=== PATIENT | male | born 1945 | race Caucasian/White ===

== ENCOUNTER 2017-03-08 08:07 | Emergency (ER) | payer OTHER ==
[~2017-03-08] VITALS: Ht 182.9 cm; Wt 71.2 kg
[~2017-03-08 08:07] MED LIST: AMBIEN 5 MG TABL5 MG PO; CALCIUM MAGNES1 EACH PO; CIPROFLOXACIN500 M1 PO; COREG25 MG PO; DELATESTRY200 MG/1 M IM; FLAGYL500 MG PO; GUAIFENESIN WI120 ML PO; HYDROCHLOROTHIA25 M1 PO; HYDROCODONE-APA1 TA1 PO; PREDNISONE 10 M10 MG PO
[2017-03-08] MEDS ORDERED: PROPRANOLOL 8080 MG PO (08:17)
[2017-03-08 10:22] VITALS: BP 126/75
== END 2017-03-08 10:23 | disposition home or self-care (01) ==
LOC: ER 08:07
DX: S62.611A Displaced fracture of proximal phalanx of left index finger, initial encounter for closed fracture (principal); S62.615A Displaced fracture of proximal phalanx of left ring finger, initial encounter for closed fracture; I10 Essential (primary) hypertension; I48.91 Unspecified atrial fibrillation; Z98.890 Other specified postprocedural states; X58.XXXA Exposure to other specified factors, initial encounter; Y93.89 Activity, other specified; Y92.89 Other specified places as the place of occurrence of the external cause; Y99.0 Civilian activity done for income or pay

== ENCOUNTER → 2018-06-21 | Outpatient (CLI) | payer OTHER ==
[~2018-06-21] VITALS: Ht 180.3 cm; Wt 70.3 kg
[~2018-06-21] MED LIST changes: +AMBIEN 10 MG TA10 MG PO; -AMBIEN 5 MG TABL5 MG PO; +LISINOPRIL-HCT1 EAC1 PO; +NORCO 7.5-3251 EACH PO; +NORVASC5 MG PO; +PROPRANOLOL 8080 MG PO
--- NOTE | ~2018-06-21 | HPC ---
[facility] [address] [address] PAIN MANAGEMENT CONSULTATION Name: ANJANA BINGHAM Room #: REG [facility].#: [id number] Admission: 06/21/18 Attend Phys: Tomer Freeman DO Discharge: Date of : 45 Report #: [id number] THIS REPORT FOR: //name// CC: FAM unknown KRISTY Sutherland MD DATE OF SERVICE: 06/21/2018 REFERRING PHYSICIAN: Madhu Gomez MD CHIEF COMPLAINT: Left low back and buttock pain. HISTORY OF PRESENT ILLNESS: As you know, the patient is an extremely pleasant 72-year-old male who reports acute onset of low back pain, left-sided upper buttock pain that presented spontaneously 04/2018. The patient denies any injury or trauma to the area that may have led to symptom development. As you are aware, the patient has had 4 different lumbar spine surgeries to address variable issues starting at the age of 16. He was recently seen by Neurosurgery of [facility] and there were no specific concerns in imaging and subsequently referred to our clinic as they did not see a specific etiology of symptoms that would be amenable to surgery. The patient indicates that he has trouble with the seated position. He has to shift from the left buttock to the right to maintain a seated position. He states that walking distances is "okay." He states pain is exacerbated with rising from a forward flexed lumbar spine position. He has been referred to our service to discuss option for treatment to address low back, left-sided pain. The patient indicates today his pain is continuous, describes the pain as throbbing, places his current pain score today over 10, daily average is 7-8/10, the worst pain has been is 9-10/10. The patient states his pain is exacerbated with activities, improves with lying down, when he is elevated or walking. He has been referred and discussed the options for treatment. PAST MEDICAL HISTORY: 1. Hypertension. 2. Degenerative joint disease. 3. Osteoarthritis. 4. Insomnia. PAST SURGICAL HISTORY: 1. Four lumbar spine surgeries starting at the age of 16. 2. Bilateral shoulder surgery. 3. Implantation of a deep brain stimulator for essential tremors. [facility] [address] [place] [address] PAIN MANAGEMENT CONSULTATION Name: ANJANA BINGHAM Room #: REG [facility].#: [id number] Admission: 06/21/18 Attend Phys: Tomer Freeman DO Discharge: Date of : 45 Report #: [id number] SOCIAL HISTORY: The patient denies tobacco, alcohol, IV or illicit drug use. 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 He is not receiving workmen's compensation nor is he trying to obtain disability benefits. He is not in litigation in regards to pain. He is unaccompanied today. REVIEW OF SYSTEMS: Positive only for left low back pain, left buttock pain, difficulty with ambulation when pain is intense, difficulty with going about activities of daily living when pain is intense, tremors. All other review of systems is negative per 12-point review of systems other than those listed in history of present illness. Pain impact score 26/70 indicating [id number] interference of daily activities secondary to pain. ALLERGIES: No noted drug allergies. CURRENT MEDICATIONS: Lisinopril/hydrochlorothiazide 20/12.5 mg once a day, amlodipine 5 mg per day, hydrocodone 7.5/325 one tab every 6 hours p.r.n. for pain, zolpidem 10 mg p.o. at bedtime. IMAGING DATA: X-ray of the lumbar spine obtained on 06/02/2018 shows L1-L2 unremarkable. L2-L3, near complete loss of disk height, endplate sclerosis, osteophyte formation, intradiscal gas. L3-L4, near complete disk height loss, endplate sclerosis, osteophyte formation, intradiscal gas, facet arthropathy. L4-L5, near complete loss of disk height, endplate sclerosis, osteophyte formation, facet arthropathy. L5-L6, disk space narrowing and facet arthropathy. L6-S1, disk space narrowing and facet hypertrophy. PHYSICAL EXAMINATION: VITAL SIGNS: Blood pressure 121/82, pulse 85, respiratory rate 14 and unlabored. The patient is 98% on room air. Height 5 feet 11 inches tall, weight 155 pounds, BMI calculated 21.6. GENERAL: Well-developed, well-nourished, well-hydrated, 72-year-old male. He appears his stated age, placing current pain score 8-9/10. HEENT: Normocephalic, atraumatic. Pupils equal, round, reactive to light. Extraocular muscles are intact. Sclerae nonicteric without injection. NEUROLOGIC: Cranial nerves 2-12 grossly intact. Speech is fluent. The patient deemed an excellent historian. LUNGS: Clear, no wheeze, rhonchi or rales. CARDIOVASCULAR: Regular. No appreciable gallop or rub. ABDOMEN: Soft, nontender, nondistended, normoactive bowel sounds. EXTREMITIES: Show no clubbing, no cyanosis, no edema. MUSCULOSKELETAL: There is palpatory tenderness noted over the left lower back directly over what appears to be the upper SI joint. There is deep palpation of pain over the area. No changes in skin color, texture, concerning of any zoster. Lower extremity strength is symmetrical 5/5. He is intact to [facility] [address] [place] [address] PAIN MANAGEMENT CONSULTATION Name: ANJANA BINGHAM Room #: [facility].#: [id number] Admission: 06/21/18 Attend Phys: Tomer Freeman DO Discharge: Date of : 45 Report #: [id number] touch from L1 through S2 dermatomes. Seated straight leg raising negative. Supine straight leg raising is negative. Isidro's test is negative for intrinsic hip pathology, positive for SI joint dysfunction. Lumbar provocation testing is met with increasing pain with extension, rotation, and lateral flexion to the left, negative right. There is noted leg length discrepancy with right slightly longer than left. There is pelvic unleveling noted. ASSESSMENT: 1. Left sacroiliac joint dysfunction. 2. Lumbosacral spondylosis without radiculopathy. 3. Lumbar degeneration. 4. Chronic intractable pain. PLAN: 1. Based on today's physical exam, the history the patient has provided, the description the patient uses in regards to pain as well as the location of symptoms and the lack of any lumbar radicular distribution, the likely source of the patient's pain is the left SI joint. There is some contribution of pain related to the facet joints of the lower lumbar area in this patient's case, the L5-L6 and the L6-S1 on the left. The majority of the patient's symptoms do appear to be coming from an SI joint. His provocating factors would also indicate a sacroiliac joint dysfunction more than just facet arthropathy. We discussed with the patient treatment options for SI joint dysfunction today and the following was discussed with the patient. The patient and I discussed physical therapy, stretching exercises, core strengthening as a way to stabilize the pelvic area. We discussed medication management with addition of a consistent nonsteroidal anti-inflammatory and low dose opioid for pain control. We discussed the use of orthotics to adjust the leg length discrepancy noted on physical exam. This could be done quite easily, though this would take some time to address his ongoing pain issues as it will take time to change the mechanics of the lumbar and SI joint area. We also discussed SI joint injections as a rapid treatment option and finally surgical options with the fusion of the SI joint. After reviewing the risks and benefits of all the proposed treatment options, the patient chose to move forward with an SI joint injection. 2. The patient was advised third alliance party payer restrictions require the authorization be obtained before he can undergo an SI joint injection. We will begin the authorization process immediately. Once we have completed this authorization process, we will contact the patient in regards to undergoing the SI joint injection. It is indicated on the chart that this may be a 24-hour approval process. We will begin the process immediately and hopefully have the patient back tomorrow to undergo a left SI joint injection. 3. No medication changes made at today's visit. The patient was advised to continue current medical therapy as prior prescribed. 4. We will see the patient back in followup visit once we have achieved [address] [address] PAIN MANAGEMENT CONSULTATION Name: ANJANA BINGHAM Room #: REG [facility]#: [id number] Admission: 06/21/18 Attend Phys: Tomer Freeman DO Discharge: Date of : 45 Report #: [id number] authorization for him to undergo first in a series of left SI joint injections under fluoroscopic guidance. We wish to thank Dr. Gomez and his nurse practitioner, Tita Magdaleno for the referral of the patient to our clinic. We will keep you apprised of his response to treatment as we address his left SI joint dysfunction and facet arthropathy of the lumbar spine. Again, we wish to thank you for the opportunity to see the patient in consultation. By: [id number] Tomer Freeman DO /hannah
[2018-06-21 08:27] VITALS: BP 121/82
== END ==
LOC: PAIN 06:34
DX: M47.817 Spondylosis without myelopathy or radiculopathy, lumbosacral region (principal); M51.36 Other intervertebral disc degeneration, lumbar region; G89.4 Chronic pain syndrome; M53.3 Sacrococcygeal disorders, not elsewhere classified; Z79.899 Other long term (current) drug therapy

== ENCOUNTER → 2018-06-22 | Outpatient (CLI) | payer OTHER ==
[~2018-06-22] VITALS: Ht 180.3 cm; Wt 70.0 kg
--- NOTE | ~2018-06-22 | HPC ---
[facility] [address] [place] [address] PAIN MANAGEMENT CONSULTATION Name: ANJANA BINGHAM Room #: REG [facility] SisiStaceyMaria Luz.#: [id number] Admission: 06/22/18 Attend Phys: Tomer Freeman DO Discharge: Date of : 45 Report #: [id number] THIS REPORT FOR: //name// CC: FAM unknown Tomer WAGNER DATE OF SERVICE: 06/22/2018 REFERRING PHYSICIANS: Madhu Gomez M.D. and KRISTY Mark. CHIEF COMPLAINT: Left low back and upper buttock pain. HISTORY OF PRESENT ILLNESS: As you know, the patient is an extremely pleasant 72-year-old male who reports acute onset of low back pain, left upper buttock pain that presented spontaneously in April 2018. He denies any injury or trauma that may have led to symptom development. The patient has had 4 different lumbar spine surgeries, addressing various issues. He sought evaluation through Neurosurgery in regards to this new left low back and upper buttock pain. It was determined that no surgical option was needing to be addressed and the patient was then referred to our clinic to trial interventional treatments. He was seen in consultation yesterday, diagnosed with left SI joint dysfunction and planned today's appointment to undergo a left SI joint injection under fluoroscopic guidance. The patient needed to obtain authorization to undergo the procedure, which took 24 hours. He returns today in followup visit stating a pain level today of 8/10. ALLERGIES: No known drug allergies. CURRENT MEDICATIONS: Lisinopril/hydrochlorothiazide 20/12.5 mg once a day, amlodipine 5 mg per day, hydrocodone 7.5/325 one tab every 6 hours p.r.n. pain, zolpidem 10 mg p.o. at bedtime. SOCIAL HISTORY: The patient denies tobacco, alcohol or IV or illicit drug use. 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 He is not receiving workmen's compensation, unaccompanied today. IMAGING DATA: No new imaging available. PHYSICAL EXAMINATION: VITAL SIGNS: Blood pressure 120/75, pulse 90 and respiratory rate 16 and unlabored. The patient 99% on room air. Height 5 feet 11 inches tall, weight 154.4 pounds and BMI calculated 21.5. GENERAL: Well-developed, well-nourished, well-hydrated, thin, 72-year-old male appearing stated age, placing current pain score at 8/10. [address] [address] PAIN MANAGEMENT CONSULTATION Name: ANJANA BINGHAM Room #: REG [facility]#: [id number] Admission: 06/22/18 Attend Phys: Tomer Freeman DO Discharge: Date of : 45 Report #: [id number] HEENT: Normocephalic and atraumatic. Pupils equal, round and reactive to light. EXTREMITIES: Show no clubbing, no cyanosis and no edema. MUSCULOSKELETAL: Palpatory tenderness noted over the left lower back directly over the upper portion of the SI joint. Deep palpation of the area causes intensification of pain. Lower extremity strength remains symmetrical, 5/5. ASSESSMENT: 1. Left sacroiliac joint dysfunction. 2. Lumbosacral spondylosis without radiculopathy. 3. Lumbar degeneration. 4. Chronic intractable pain. PLAN: 1. The patient returns today in followup visit having received authorization to undergo left SI joint injection under fluoroscopic guidance. As you are aware, the patient has had multiple surgeries in the lumbar spine, though his symptoms currently do not appear to be related to the lumbar area. The pain he is experiencing is lateral and inferior to the L5-S1 level corresponding to the SI joint. The patient and I today planned for the patient to have a SI joint injection in hopes of improving pain. He has returned with authorization to undergo the procedure. He has been advised of the risks and the benefits of this procedure. These risks include but are not necessarily limited to bleeding, bruising, infection, worsening pain, no relief of pain, also risk of temporary or permanent muscle weakness, temporary or permanent nerve damage, possible paralysis and . The patient states understood and wished to proceed. 2. No medication changes made at today's visit. The patient will continue current medical therapy as previously prescribed. 3. The patient will return to our clinic in approximately 3 weeks and at that time, discuss efficacy of today's injection. PROCEDURE NOTE DESCRIPTION OF PROCEDURE: Left SI joint injection under fluoroscopic guidance. This is the first procedure of the first series that the patient is undergoing. After obtaining written consent, the patient was taken back to the fluoroscopy suite and placed in a prone position with a pillow under the pelvis to decrease the lumbar lordosis. The skin of the gluteal-sacral area overlying the left sacroiliac joint was prepped and draped in an aseptic fashion. A medial to lateral oblique projection allowed separation of the anterior and posterior branches of the joint space. The skin and subcutaneous tissue [address] [address] PAIN MANAGEMENT CONSULTATION Name: ANJANA BINGHAM Room #: REG [facility]#: [id number] Admission: 06/22/18 Attend Phys: Tomer Freeman DO Discharge: Date of : 45 Report #: [id number] overlying the target site of injection was anesthetized using 3 mL of 1% lidocaine. A 22-gauge 3-1/2 inch needle with a bent tip was directed into the inferior aspect of the sacroiliac joint using a posterior approach. A at the needle hub was noted once the dorsal sacroiliac and interosseous ligaments were engaged. After negative aspiration for heme, a total of 0.6 mL of Omnipaque was injected, outlining the coin-shaped inferior recess of the joint. Provocation responses consisting of intense buttock pain were negative. After negative aspiration for heme, 3 mL of a solution containing 1 mL 40 mg per mL, 40 mg total triamcinolone and 2 mL bupivacaine 0.5% was slowly injected. The needle was then retracted approximately prison and the needle track was flushed with 1 mL of 1% lidocaine. Needle was then removed. A sterile bandage was placed over the injection site. There were no new sensory deficits present in the lower extremities. The heart rate, pulse oximetry and blood pressure were continuously monitored after the procedure. There were no apparent complications. The patient tolerated the procedure well and was carefully escorted to the recovery room in stable condition. The VAS was 8 before the procedure and zero ten minutes after the procedure. After meeting discharge criteria, the patient was discharged home. By: [id number] Tomer Freeman DO /nt
[2018-06-22 08:42] VITALS: BP 128/75
== END ==
LOC: PAIN 06:59
DX: M53.3 Sacrococcygeal disorders, not elsewhere classified (principal); M47.817 Spondylosis without myelopathy or radiculopathy, lumbosacral region; M51.36 Other intervertebral disc degeneration, lumbar region; G89.29 Other chronic pain; Z79.899 Other long term (current) drug therapy; Z98.890 Other specified postprocedural states

== ENCOUNTER → 2018-07-06 | Outpatient (CLI) | payer OTHER ==
[~2018-07-06] VITALS: Ht 180.3 cm; Wt 70.8 kg
--- NOTE | ~2018-07-06 | HPC ---
[facility] [address] [place] [address] PAIN MANAGEMENT CONSULTATION Name: ANJANA BINGHAM [facility]#: [id number] Admission: 07/06/18 Attend Phys: Tomer Freeman DO Discharge: Date of : 45 Report #: [id number] THIS REPORT FOR: //name// CC: ELIJAH Gomez MD Physician staff Tita Magdaleno NP CHIEF COMPLAINT: Left low back and upper buttock pain. HISTORY OF PRESENT ILLNESS: As you know, the patient is extremely pleasant 72-year-old male who returns today in followup visit to undergo second in series of SI joint injections on the left side. Initial SI joint injection provided significant pain improvement, but unfortunately, his pain did return. He sought evaluation with Neurosurgery who advised trial once further SI joint injection to determine if we can provide long-term benefit. The fact that the patient noted excellent benefit initially with the SI joint injection indicates the SI joint is the source of the patient's pain whether or not we can maintain efficacy is the question to be answered today. He returns today per the request of Neurosurgery to undergo a left SI joint injection to determine if prolonged efficacy can be obtained. The patient is placing pain score 8/10, states activity and bending exacerbate symptoms, lying down, tends to improve pain as has the previous SI joint injection. ALLERGIES: No known drug allergies. CURRENT MEDICATIONS: Lisinopril, hydrochlorothiazide, amlodipine, hydrocodone, zolpidem. SOCIAL HISTORY: The patient denies tobacco, alcohol, IV or illicit drug use. 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 IMAGING: No new imaging available. PHYSICAL EXAMINATION: VITAL SIGNS: Blood pressure 120/79, pulse 88, respiratory rate 16 and unlabored. The patient is 98% on room air. Height 5 feet 11 inches tall, weight 156 pounds, BMI calculated 21.8. GENERAL: Well-developed, well-nourished, well-hydrated, thin, 72-year-old male appearing stated age, placing current pain score at 8/10. HEENT: Normocephalic, atraumatic. Pupils equal, round, reactive to light. EXTREMITIES: Show no clubbing, no cyanosis, no edema. MUSCULOSKELETAL: Palpatory tenderness is again noted over the left lower back directly over the superior portion of the joint. Deep palpation of the area causes intensification of pain. Manipulation of the SI joint causes intensification of pain with Isidro's test. Lower extremity strength remains [facility] [address] [place] [address] PAIN MANAGEMENT CONSULTATION Name: ANJANA BINGHAM Room #: REG [facility]#: [id number] Admission: 07/06/18 Attend Phys: Tomer Freeman DO Discharge: Date of : 45 Report #: [id number] 12/18. ASSESSMENT: 1. Left sacroiliac joint dysfunction. 2. Lumbosacral spondylosis without radiculopathy. 3. Lumbar degeneration. 4. Chronic intractable pain. PLAN: 1. The patient returns today in followup visit having received excellent benefit with the SI joint injection initially, but unfortunately, he began to experience slow and progressive return of symptoms. He is now placing pain score back at 8/10, his typical base level. The patient sought evaluation through Neurosurgery who advised to trial a second in the series of SI joint injections to determine if his symptoms would improve more effectively and for a longer period of time. Given the fact the patient's good improvement in symptoms with the SI joint injection at our last visit, I am hopeful he will see similar improvement today. This would indicate that the SI joint is the source of the patient's symptoms whether or not SI joint injections will provide good and prolonged benefit, we will determine today. If this is not the case, a fusion of the SI joint may be necessary. We discussed this with Neurosurgery and we have discussed this with the patient today. 2. No medication changes made at today's visit. The patient will continue current medical therapy as previously prescribed. 3. We will see the patient back in followup visit on an as needed basis. There is a possibility the patient will need a diagnostic SI joint injection as part of the criteria to move forward with SI joint fusion. We will be available to see him back if necessary to undergo this procedure. If the patient notes good benefit with a SI joint injection today and it is prolonged in its improvement, we would be willing to provide these on an as needed basis for a typical SI joint procedures. By: [id number] Tomer Freeman DO /nt
--- NOTE | ~2018-07-06 | HPC ---
[facility] [place] [address] PAIN MANAGEMENT CONSULTATION Name: ANJANA BINGHAM Room #: REG [facility].#: [id number] Admission: 07/06/18 Attend Phys: Tomer Freeman DO Discharge: Date of : 45 Report #: [id number] THIS REPORT FOR: //name// CC: ELIJAH Gomez MD Physician staff Tita Magdaleno NP DESCRIPTION OF PROCEDURE: Left SI joint injection under fluoroscopic guidance. This is the second procedure of the first series that the patient is undergoing. After obtaining written consent, the patient was taken back to the fluoroscopy suite and placed in a prone position with a pillow under the pelvis to decrease the lumbar lordosis. The skin of the gluteal-sacral area overlying the left sacroiliac joint was prepped and draped in an aseptic fashion. A medial to lateral oblique projection allowed separation of the anterior and posterior branches of the joint space. The skin and subcutaneous tissue overlying the target site of injection was anesthetized using 3 mL of 1% lidocaine. A 22-gauge 3-1/2-inch needle with a bent tip was directed into the inferior aspect of the sacroiliac joint using a posterior approach. A giving way at the needle hub was noted once the dorsal sacroiliac and interosseous ligaments were engaged. After negative aspiration for heme, a total of 0.5 mL of Omnipaque was injected, outlining the coin-shaped inferior recess of the joint. Provocation responses consisting of intense buttock pain were negative. After negative aspiration for heme, 3 mL of a solution containing 1 mL 80 mg/mL 80 mg total Depo-Medrol and 2 mL bupivacaine 0.5% was slowly injected. The needle was then retracted approximately mcc and the needle track was flushed with 1 mL of 1% lidocaine. Needle was then removed. A sterile bandage was placed over the injection site. There were no new sensory deficits present in the lower extremities. The heart rate, pulse oximetry and blood pressure were continuously monitored after the procedure. There were no apparent complications. The patient tolerated the procedure well and was carefully escorted to the recovery room in stable condition. The VAS was 8/10 before the procedure and 0/10 ten minutes after the procedure. After meeting discharge criteria, the patient was discharged home. By: [id number] Tomer Freeman DO /nt
[2018-07-06 09:52] VITALS: BP 120/79
== END | disposition home or self-care (01) ==
LOC: PAIN 06:35
DX: M53.3 Sacrococcygeal disorders, not elsewhere classified (principal); M47.817 Spondylosis without myelopathy or radiculopathy, lumbosacral region; M51.36 Other intervertebral disc degeneration, lumbar region; G89.29 Other chronic pain; Z79.899 Other long term (current) drug therapy

== ENCOUNTER → 2019-08-22 | Outpatient (CLI) | payer OTHER ==
[~2019-08-22] VITALS: Ht 180.3 cm; Wt 69.5 kg
[2019-08-22 11:52] VITALS: BP 137/83
--- NOTE | 2019-08-22 11:58 | NUR ---
Pain Clinic Assessment: 1. History of Osteoarthritis: BACK History of Rheumatoid Arthritis: NO 2. Height: 5 ft. 11 in. 180.3 cm. Weight: 153.2 lb. oz. 69.491 kg. Patient's BMI: 21.4 3. Vital Signs: BP: 137/83 Pulse: 76 Resp: 16 Temp: 02 Sat: 100 ECG Mon: 4. Pain Intensity: 7-8 5. Fall Risk: Dizziness: N Needs help standing or walking: N Fallen in the last 3 months: N Fall risk comments: 6. Patient on Blood Thinner: None 7. History of Hypertension: Y 8. Opioid Therapy greater than 6 weeks: N Opiate Contract Signed: 9. Risk Assessment Tool Provided: 0-low 10. Functional Assessment Tool: 11. Recreational Drug Use: Never Drug Type: Tobacco Use: Never Smoker Tobacco Type: Amount or Packs/day: How Many Years: Alcohol Use: No Frequency: Quant:
--- NOTE | 2019-08-23 12:54 | HPC ---
[facility] [place] [address] PAIN MANAGEMENT CONSULTATION Name: ANJANA BINGHAM [id number] Admission: 08/22/19 Attend Phys: Tomer Freeman DO Discharge: Date of : 45 Report #: [id number] THIS REPORT FOR: //name// CC: ELIJAH Gomez MD Physician staff Tita Magdaleno NP DATE OF SERVICE: 08/22/2019 REFERRING PHYSICIAN: Dr. Madhu Gomez PRIMARY CARE PHYSICIAN: Dr. Elijah Sheikh CHIEF COMPLAINT: Low back pain; bilateral lower extremity pain, left greater than right. HISTORY OF PRESENT ILLNESS: As you know, the patient is a very pleasant 73-year-old male who returns today in followup visit with bilateral lower extremity pain, left greater than right. As you are aware, the patient underwent sacroiliac joint injections with good efficacy in the past, but unfortunately, he has had a new onset of symptoms that he describes as burning, numbness and tingling. When describing symptoms, he indicates pain that radiates all the way down the leg on the left, which is different from the previous evaluation with the SI joint pain. He returns today to discuss potential treatment options. He does have a history of longstanding radicular symptoms that may have represented. He denies injury or trauma. ALLERGIES: No known drug allergies. CURRENT MEDICATIONS: Lisinopril/hydrochlorothiazide, amlodipine, hydrocodone, and zolpidem. IMAGING: There is no new imaging available. PHYSICAL EXAMINATION: VITAL SIGNS: Blood pressure 137/83, pulse 76, respiratory rate 16 and unlabored. The patient is 100% on room air. Height 5 feet 11 inches tall, weight 153.2 pounds, BMI calculated 21.4. GENERAL: Well-developed, well-nourished, well-hydrated 73-year-old male appearing stated age, pain is rated at 7-8/10. HEENT: Normocephalic, atraumatic. Pupils equal, round, reactive to light. EXTREMITIES: Show no clubbing, no cyanosis, and no edema. MUSCULOSKELETAL: Lower extremity strength appears symmetrical 5/5. Muscle bulk [facility] [address] [place] [address] PAIN MANAGEMENT CONSULTATION Name: ANJANA BINGHAM Room #: [facility].#: [id number] Admission: 08/22/19 Attend Phys: Tomer Freeman DO Discharge: Date of : 45 Report #: [id number] and tone equal and symmetrical in comparing left lower extremity to right. Seated straight leg raising negative. Supine straight leg raising positive on the left. Isidro's test is negative. There is palpatory tenderness over the bilateral SI joints. ASSESSMENT: 1. Lumbar radiculopathy. 2. Chronic lumbar radiculopathy. 3. Lumbosacral spondylosis with radiculopathy. 4. Bilateral sacroiliac joint pain, left greater than right. 5. Chronic intractable pain. PLAN: 1. The patient returns today in followup visit reporting low back pain radiating all the way down the leg on the left and intermittently on the right. This appears to be lumbar radiculopathy. It is different distribution and different pain descriptors than he was experiencing with his left SI joint symptoms. He continues to experience left SI joint dysfunction, but the symptoms he is experiencing today appear to be more radicular in origin. We discussed options for treatment. He chose to undergo a lumbar epidural injection. The patient was advised risks and benefits of a lumbar epidural injection. These risks include but are not necessarily limited to bleeding, bruising, infection, worsening pain, no relief of pain, also risk of temporary or permanent muscle weakness, temporary or permanent nerve damage, possible paralysis and . The patient states understood and wished to proceed. 2. No medication changes made at today's visit. The patient will continue current medical therapy as prior prescribed. 3. We will see the patient back in followup visit on an as needed basis to treat SI joint pain or possible recurrent lumbar radiculopathy. PROCEDURE NOTE: DESCRIPTION OF PROCEDURE: L5-S1 left paramedian epidural steroid injection under fluoroscopic guidance. After obtaining written consent, the patient was taken back to fluoroscopy suite, placed in prone position with pillow under abdomen to decrease lumbar lordosis. Skin overlying lumbosacral area then prepped and draped in aseptic fashion. The L5-S1 vertebral interspace identified by AP fluoroscopy. Skin and subcutaneous tissue overlying target site of injection anesthetized with 3 mL of 1% lidocaine. A 20-gauge 3-1/2 inch Tuohy needle advanced under fluoroscopic guidance towards the epidural space using a left parasagittal approach. Epidural space identified using loss of resistance to air technique. After negative aspiration [address] [address] PAIN MANAGEMENT CONSULTATION Name: ANJANA BINGHAM Room #: REG [facility] [place]#: [id number] Admission: 08/22/19 Attend Phys: Tomer Freeman DO Discharge: Date of : 45 Report #: [id number] for heme or cerebrospinal fluid, 0.5 mL of Omnipaque injected demonstrating an excellent epidurogram. After negative aspiration for heme or cerebrospinal fluid, 5 mL of a solution containing 2 mL 40 mg per mL, 80 mg total triamcinolone along with 3 mL of lidocaine 1% injected slowly. Needle retracted group home, flushed with 1 mL of 1% lidocaine and then removed. Sterile bandage placed over injection site. No new motor deficits present in the lower extremities following procedure. The patient tolerated procedure well, carefully escorted to recovery room in stable condition. No apparent complications. After meeting discharge criteria, the patient discharged home. <ELECTRONICALLY SIGNED> By: Tomer Freeman DO 08/23/19 1254 [id number] Tomer Freeman DO /nt
== END | disposition home or self-care (01) ==
LOC: PAIN 07:00
DX: M47.26 Other spondylosis with radiculopathy, lumbar region (principal); M53.3 Sacrococcygeal disorders, not elsewhere classified; G89.29 Other chronic pain; Z79.899 Other long term (current) drug therapy

== ENCOUNTER → 2019-09-05 | Outpatient (CLI) | payer OTHER ==
[~2019-09-05] VITALS: Ht 180.3 cm; Wt 69.4 kg
[2019-09-05 09:04] VITALS: BP 150/79
--- NOTE | 2019-09-05 09:16 | NUR ---
Pain Clinic Assessment: 1. History of Osteoarthritis: BACK History of Rheumatoid Arthritis: NO 2. Height: 5 ft. 11 in. 180.3 cm. Weight: 153.0 lb. oz. 69.400 kg. Patient's BMI: 21.3 3. Vital Signs: BP: 150/79 Pulse: 75 Resp: 14 Temp: 02 Sat: 98 ECG Mon: 4. Pain Intensity: 8 5. Fall Risk: Dizziness: N Needs help standing or walking: N Fallen in the last 3 months: N Fall risk comments: 6. Patient on Blood Thinner: None 7. History of Hypertension: Y 8. Opioid Therapy greater than 6 weeks: N Opiate Contract Signed: 9. Risk Assessment Tool Provided: 0-low 10. Functional Assessment Tool: 11. Recreational Drug Use: Never Drug Type: Tobacco Use: Never Smoker Tobacco Type: Amount or Packs/day: How Many Years: Alcohol Use: No Frequency: Quant:
--- NOTE | 2019-09-06 11:48 | HPC ---
[facility] [place] [address] PAIN MANAGEMENT CONSULTATION Name: ANJANA BINGHAM [facility] [id number] Admission: 09/05/19 Attend Phys: Tomer Freeman DO Discharge: Date of : 45 Report #: [id number] THIS REPORT FOR: //name// CC: ELIJAH Gomez MD Physician staff Tita Magdaleno NP DATE OF SERVICE: 09/05/2019 CHIEF COMPLAINT: Low back pain, bilateral lower extremity pain, left greater than right. HISTORY OF PRESENT ILLNESS: As you know, the patient is a very pleasant 73-year-old male returning in followup visit noticing an improvement in his lumbar radicular symptoms of greater than 90% improvement with the epidural injection. Unfortunately, his pain has begun to return. He now places pain score at 8/10. He recently saw his neurosurgeon, Dr. Madhu Gomez, who advised the patient to trial next in the series of epidural injections. He describes the pain is involving low back, bilateral buttock and mainly left leg. He states his pain is constant and aching in sensation. It improves with medications, lying down, standing, walking and epidural injections. He returns today in followup visit to undergo next in the series of epidural injection under fluoroscopic guidance to address recurrent lumbar radicular symptoms. ALLERGIES: No known drug allergies. CURRENT MEDICATIONS: Lisinopril/hydrochlorothiazide, amlodipine, hydrocodone and zolpidem. IMAGING: No new imaging available. PQRS: The patient has known arthritic change of the lumbar spine, bilateral hips. No rheumatoid arthritis, placing pain intensity 8/10. He is not a fall risk, has not had a fall in last 3 months. He is not on blood thinners, but is treated for hypertension. He is not on chronic opioids, but does have a low opiate addiction potential based on our assessment tool. Pain impact 26/70 indicating moderate interference of daily activity secondary to pain. PHYSICAL EXAMINATION: VITAL SIGNS: Blood pressure 150/79, pulse 75, respiratory rate 14 and unlabored. The patient is 98% on room air. Height 5 feet 11 inches tall, weight 153 pounds, BMI calculated 21.3. GENERAL: Well-developed, well-nourished, well-hydrated, thin, 73[place] [address] PAIN MANAGEMENT CONSULTATION Name: OTILIAANJANA GAVI Room #: REG [facility] HeardLavon#: [id number] Admission: 09/05/19 Attend Phys: Tomer Freeman DO Discharge: Date of : 45 Report #: [id number] appearing stated age, pain is rated today at 8/10. HEENT: Normocephalic, atraumatic. Pupils equal, round and reactive to light. Speech fluent. EXTREMITIES: Show no clubbing, no cyanosis, and no edema. MUSCULOSKELETAL: Lower extremity strength is symmetrical 5/5. Muscle bulk and tone is symmetrical comparing left lower extremity to right. Seated straight leg raising negative. Supine straight leg raising positive on the left. Isidro's test negative. Gait mildly antalgic favoring right lower extremity over left. Ankle clonus negative. Babinski is negative. ASSESSMENT: 1. Symptomatic lumbar radiculopathy. 2. Lumbosacral spondylosis with radiculopathy. 3. Bilateral sacroiliac joint pain. 4. Chronic intractable pain. PLAN: 1. The patient returns today in followup visit having noted 90% improvement in overall pain with the epidural injection provided at last visit. Unfortunately, he has had a slow and progressive return of symptoms. He returns today in followup visit requesting to undergo next in the series of epidural injections per the request of his neurosurgeon who he recently saw in consultation. The patient and I discussed the efficacy of the epidural injection. We do agree repeating epidural injection would be recommended. 2. The patient was advised that due to third [employer] party payer restrictions, authorization will have to be obtained before the patient could undergo epidural injection. We will begin this authorization process immediately, have the patient return to undergo epidural injection as quickly as possible. We will attempt to get that authorization today for a possible epidural injection tomorrow, 09/06/2019. We will keep the patient apprised of our progress. 3. No medication changes made at today's visit. The patient will continue current medical therapy as prior prescribed. 4. We will see the patient back in followup visit once we have authorization for the patient to undergo a lumbar epidural injection under fluoroscopic guidance. <ELECTRONICALLY SIGNED> By: Tomer Freeman DO 09/06/19 1148 [id number] 1350 Tomer Freeman DO /nt
== END ==
LOC: PAIN 06:47
DX: M47.27 Other spondylosis with radiculopathy, lumbosacral region (principal); G89.4 Chronic pain syndrome; Z79.899 Other long term (current) drug therapy; Z79.891 Long term (current) use of opiate analgesic

== ENCOUNTER → 2019-09-06 | Outpatient (CLI) | payer OTHER ==
[~2019-09-06] VITALS: Ht 180.3 cm; Wt 69.4 kg
--- NOTE | ~2019-09-06 | HPC ---
[facility] [place] [address] PAIN MANAGEMENT CONSULTATION Name: ANJANA BINGHAM Room #: REG [facility].#: [id number] Admission: 09/06/19 Attend Phys: oTmer Freeman DO Discharge: Date of : 45 Report #: [id number] THIS REPORT FOR: //name// CC: ELIJAH Gomez MD Physician staff DATE OF SERVICE: 09/06/2019 CHIEF COMPLAINT: Low back pain, bilateral lower extremity pain, left greater than right. HISTORY OF PRESENT ILLNESS: As you know, the patient is a very pleasant 73-year-old male returning in followup visit having received preauthorization to undergo a lumbar epidural injection under fluoroscopic guidance. He returns today reporting pain level of 8/10. He denies any changes in medical history since our visit of yesterday. ALLERGIES: No known drug allergies. CURRENT MEDICATIONS: Lisinopril, hydrochlorothiazide, amlodipine, hydrocodone, and zolpidem. IMAGING: There is no new imaging available. PQRS: The patient has known arthritic changes of the lumbar spine, bilateral hips and knees. No rheumatoid arthritis. Placing pain intensity at 8/10, not a fall risk, has not had a fall in last 3 months. Not on blood thinners, but is treated for hypertension. He is not on chronic opioids, has a low opioid addiction potential. Pain impact score 26/70 indicating mild interference of daily activities secondary to pain. PHYSICAL EXAMINATION: VITAL SIGNS: Blood pressure 128/82, pulse 78, respiratory rate 16 and unlabored. The patient is 100% on room air. Height 5 feet 11 inches tall, weight 153 pounds, BMI calculated 21.3. GENERAL: Well-developed, well-nourished, well-hydrated 73-year-old male appearing stated age, pain is rated today at 8/10. HEENT: Normocephalic, atraumatic. Pupils are equal, round, reactive. Speech fluent. EXTREMITIES: Show no clubbing, no cyanosis, and no edema. MUSCULOSKELETAL: Lower extremity strength appears symmetrical 5/5. Muscle bulk and tone equal and symmetrical in comparing the lower extremities. Seated straight leg raising negative. Supine straight leg raising positive on the [address] [address] PAIN MANAGEMENT CONSULTATION Name: ANJANA BINGHAM Room #: REG [facility] [place]#: [id number] Admission: 09/06/19 Attend Phys: Tomer Freeman DO Discharge: Date of : 45 Report #: [id number] left. ASSESSMENT: 1. Symptomatic lumbar radiculopathy. 2. Lumbosacral spondylosis with radiculopathy. 3. Chronic intractable pain. PLAN: 1. The patient returns today in followup visit to undergo next in the series of lumbar epidural injections under fluoroscopic guidance. We have received authorization for the patient to undergo the procedure today. He has been advised of the risks and the benefits of this procedure. These risks include but are not necessarily limited to bleeding, bruising, infection, worsening pain, no relief of pain, also risk of temporary or permanent muscle weakness, temporary or permanent nerve damage, possible paralysis, post-dural puncture headache and . The patient states understood and wished to proceed. 2. No medication changes made at today's visit. The patient will continue current medical therapy as prior prescribed. 3. We will see the patient back in followup visit on an as needed basis for possible next in the series of lumbar epidural injections. PROCEDURE NOTE DESCRIPTION OF PROCEDURE: L5-S1 left paramedian epidural steroid injection under fluoroscopic guidance. After obtaining written consent, the patient was taken back to fluoroscopy suite, placed in prone position with pillow under abdomen to decrease lumbar lordosis. Skin overlying lumbosacral area then prepped and draped in aseptic fashion. The L5-S1 vertebral interspace was identified by AP fluoroscopy. Skin and subcutaneous tissue overlying target site of injection was anesthetized with 3 mL of 1% lidocaine. A 20-gauge 3.5 inch Tuohy needle advanced under fluoroscopic guidance towards the epidural space using a left paramedian approach. Epidural space identified using loss of resistance to air technique. After negative aspiration for heme or cerebrospinal fluid, 1 mL of Omnipaque injected. Lumbar epidurogram confirmed using both AP and lateral fluoroscopy. After negative aspiration for heme or cerebrospinal fluid, 5 mL of a solution containing 2 mL 40 mg per mL, 80 mg total triamcinolone along with 3 mL of lidocaine 1% injected slowly. Needle retracted long-term, flushed with 1 mL of 1% lidocaine and then removed. Sterile bandage placed over injection site. There were no new motor deficits present in the lower extremities following procedure. The patient tolerated procedure well, carefully escorted to recovery room in [facility] [address] [place] [address] PAIN MANAGEMENT CONSULTATION Name: ANJANA BINGHAM Room #: [facility] [place]#: [id number] Admission: 09/06/19 Attend Phys: Tomer Freeman DO Discharge: Date of : 45 Report #: [id number] stable condition. No apparent complications. After meeting discharge criteria, the patient discharged home. By: [id number] Tomer Freeman DO /nt
[2019-09-06 13:13] VITALS: BP 128/82
--- NOTE | 2019-09-06 13:29 | NUR ---
Pain Clinic Assessment: 1. History of Osteoarthritis: BACK History of Rheumatoid Arthritis: NO 2. Height: 5 ft. 11 in. 180.3 cm. Weight: 153.0 lb. oz. 69.400 kg. Patient's BMI: 21.3 3. Vital Signs: BP: 128/82 Pulse: 78 Resp: 16 Temp: 02 Sat: 100 ECG Mon: 4. Pain Intensity: 8 5. Fall Risk: Dizziness: N Needs help standing or walking: N Fallen in the last 3 months: N Fall risk comments: 6. Patient on Blood Thinner: None 7. History of Hypertension: Y 8. Opioid Therapy greater than 6 weeks: N Opiate Contract Signed: 9. Risk Assessment Tool Provided: 0-low 10. Functional Assessment Tool: 11. Recreational Drug Use: Never Drug Type: Tobacco Use: Never Smoker Tobacco Type: Amount or Packs/day: How Many Years: Alcohol Use: No Frequency: Quant:
== END | disposition home or self-care (01) ==
LOC: PAIN 07:00
DX: M47.27 Other spondylosis with radiculopathy, lumbosacral region (principal); G89.29 Other chronic pain; M19.90 Unspecified osteoarthritis, unspecified site; I10 Essential (primary) hypertension; Z98.890 Other specified postprocedural states; Z79.899 Other long term (current) drug therapy

== ENCOUNTER → 2019-10-24 | Outpatient (CLI) | payer OTHER ==
[~2019-10-24] VITALS: Ht 180.3 cm; Wt 68.0 kg
--- NOTE | ~2019-10-24 | HPC ---
[facility] [place] [address] PAIN MANAGEMENT CONSULTATION Name: ANJANA BINGHAM Room #: [facility] [id number] Admission: 10/24/19 Attend Phys: Tomer Freeman DO Discharge: Date of : 45 Report #: [id number] THIS REPORT FOR: cc: ELIJAH MEDEROS MD Physician not on staff Tomer Freeman DO ~ CC: ELIJAH Gomez MD Physician staff DATE OF SERVICE: 10/24/2019 REFERRING PHYSICIAN: Madhu Gomez MD CHIEF COMPLAINT: Left buttock pain and posterolateral thigh pain. HISTORY OF PRESENT ILLNESS: As you know, the patient is a very pleasant 73-year-old male who returns today in followup visit with continued left buttock and posterolateral thigh pain. The patient is able to localize pain directly over the sciatic notch. There is no bursa involvement, it is not exacerbated with movement. The pain is not over any bony structure consistent with bursitis. He was advised by Neurosurgery and no surgical options are necessary at this time. They believed his symptoms may be related to a bursitis, though his distribution symptoms is not consistent with bursitic type pain. He has been referred back to our clinic to discuss options for treatment. He is placing pain at anywhere from 4-5/10, 7/10 when its worst and he describes the pain as burning, numbness and tingling. ALLERGIES: No known drug allergies. CURRENT MEDICATIONS: Lisinopril/hydrochlorothiazide, amlodipine, hydrocodone, and zolpidem. IMAGING: There is no new imaging available. PQRS: The patient has known arthritic changes of the lumbar spine, bilateral hips and knees. No rheumatoid arthritis. He is placing pain intensity today up to 7/10. He is not at fall risk, has not had a fall in last 3 months. He is not on blood thinners, but is treated for hypertension. He is on chronic opioids, has a low opiate addiction potential. Pain impact score 26/70, moderate interference of daily activities secondary to pain. PHYSICAL EXAMINATION: VITAL SIGNS: Blood pressure 122/73, pulse 82, respiratory rate 16 and unlabored, the patient is 99% on room air. Height 5 feet 11 inches tall, weight [facility] [address] [place] [address] PAIN MANAGEMENT CONSULTATION Name: ANJANA BINGHAM Room #: REG [facility].#: [id number] Admission: 10/24/19 Attend Phys: Tomer Freeman DO Discharge: Date of : 45 Report #: [id number] 150 pounds, BMI calculated 20.9. GENERAL: Well-developed, well-nourished, well-hydrated, thin, 73-year-old male appearing stated age, pain is rated around 7/10. HEENT: Normocephalic and atraumatic. Pupils are equal, round, and reactive to light. Extraocular muscles are intact. EXTREMITIES: Show no clubbing, no cyanosis, and no edema. MUSCULOSKELETAL: The patient has some palpatory tenderness over the sciatic notch on the left, negative on the right. There is no tenderness over the SI joint, nor is there tenderness over the left ischial bursa or tenderness to palpation over the greater trochanter on the left. Gait appears mildly antalgic due to pain generated in the buttock and posterolateral thigh. Seated straight leg raising negative. Supine straight leg raising positive on the left. Isidro's test negative. Modified Gaenslen's positive for some axial low back pain. ASSESSMENT: 1. Chronic lumbar radiculopathy. 2. Lumbosacral spondylosis with radiculopathy. 3. Failed lumbar spine surgery. 4. Chronic intractable pain. PLAN: 1. The patient returns today in followup visit with ongoing left buttock and posterolateral thigh pain. He was advised that his symptoms may correlate to a bursitis, though physical exam today would indicate no bursitic type of pain. He has no pain over the ischium on the left, nor the bursa overlying the ischium nor is there pain of the greater trochanter on the left or the bursa overlying the greater trochanter. Isidro's test is negative, which rules out any specific intrinsic hip pathology, this leaves us with a sciatic notch palpatory tenderness. The patient is a very definitive when we reached the spot of discomfort and this is correlated the sciatic notch. Interventional treatments to address this do not exist. Treatments would have to involve the lumbar spine. If interventional therapies were to be addressed, otherwise medication management might be beneficial. At this point, I do not concur with a bursitis problem is appears to be fairly typical radicular symptoms radiating from the low back. We discussed with the patient treatment options we have available based on the physical exam and his descriptors uses in regard to pain. Following was discussed with the patient today. 2. We discussed adjusting medications using neuropathic medications such as nortriptyline, amitriptyline, Cymbalta, Lyrica or Neurontin as a treatment option. We discussed the risks and the benefits of these medications. The patient is resistant due to the potential side effects of sleepiness, disorientation, confusion, mental slowing. He does not wish to exacerbate his underlying issues with possible complications with medications. 3. We did discuss at length today the possibility of using a spinal cord stimulator to address his lumbar radicular symptoms. I do feel this would be an [facility] [address] [address] PAIN MANAGEMENT CONSULTATION Name: ANJANA BINGHAM Room #: REG [facility] Holland#: [id number] Admission: 10/24/19 Attend Phys: Tomer Freeman DO Discharge: Date of : 45 Report #: [id number] excellent alternative option for treatment as I do not feel he is a surgical candidate given the recent evaluations. The patient is very interested in the spinal cord stimulator was given information today about the Nevro device and was sent with both digital and written information to review. If the patient does choose to move forward with a spinal cord stimulator, he will have to undergo psychiatric evaluation. He was given the names of psychiatrists in the area that do this type of evaluation. If he wishes to make that appointment, he may do so at his earliest convenience. I have advised the patient once he has made the appointment to contact our clinic, so we are watching for results. 4. No medication changes made at today's visit. The patient is resistant to make any changes in medication at this time. We agree that the medications could complicate his underlying conditions and we do not wish to exacerbate any of those symptoms. I believe a spinal cord stimulator in this patient's case might be an option. Certainly, we can look towards epidural injections, though the patient's last injection provided no improvement in symptoms. The initial injection did provide about 50-60% improvement. This remains an option, though I think further evaluation and possible spinal cord stimulator trial would be more appropriate. 5. The patient will contact our clinic once he has undergone psychiatric evaluation for the spinal cord stimulator assuming he wishes to move forward with this device. Once we have that information, we will then move forward with authorization to gain the capability of having the patient undergo spinal cord stimulator trial implantation to determine if his symptoms would be amenable to this type of treatment. By: [id number] Tomer Freeman DO /nt
[2019-10-24 10:41] VITALS: BP 122/73
--- NOTE | 2019-10-24 11:02 | NUR ---
Pain Clinic Assessment: 1. History of Osteoarthritis: BACK History of Rheumatoid Arthritis: NO 2. Height: 5 ft. 11 in. 180.3 cm. Weight: 150.0 lb. oz. 68.040 kg. Patient's BMI: 20.9 3. Vital Signs: BP: 122/73 Pulse: 82 Resp: 16 Temp: 02 Sat: 99 ECG Mon: 4. Pain Intensity: 4-5; 7 AT WORST 5. Fall Risk: Dizziness: N Needs help standing or walking: N Fallen in the last 3 months: N Fall risk comments: 6. Patient on Blood Thinner: None 7. History of Hypertension: Y 8. Opioid Therapy greater than 6 weeks: N Opiate Contract Signed: 9. Risk Assessment Tool Provided: 0-low 10. Functional Assessment Tool: 11. Recreational Drug Use: Never Drug Type: Tobacco Use: Never Smoker Tobacco Type: Amount or Packs/day: How Many Years: Alcohol Use: No Frequency: Quant:
== END ==
LOC: PAIN 06:46
DX: M47.27 Other spondylosis with radiculopathy, lumbosacral region (principal); G89.29 Other chronic pain; Z88.3 Allergy status to other anti-infective agents; Z79.891 Long term (current) use of opiate analgesic

== ENCOUNTER → 2020-08-13 | Outpatient (CLI) | payer OTHER ==
[~2020-08-13] VITALS: Ht 180.3 cm; Wt 77.5 kg
[~2020-08-13] MED LIST changes: +CARBIDOPA-LEVO1 EAC9 PO; +FLOMAX0.4 MG PO; +IBUPROFEN 600600 M1 PO; +gabapentin PO
[2020-08-13 08:53] VITALS: BP 131/75
--- NOTE | 2020-08-13 09:20 | NUR ---
Pain Clinic Assessment: 1. History of Osteoarthritis: BACK History of Rheumatoid Arthritis: NO 2. Height: 5 ft. 11 in. 180.3 cm. Weight: 170.8 lb. oz. 77.474 kg. Patient's BMI: 23.8 3. Vital Signs: BP: 131/75 Pulse: 73 Resp: 16 Temp: 02 Sat: 98 ECG Mon: 4. Pain Intensity: 6 5. Fall Risk: Dizziness: N Needs help standing or walking: N Fallen in the last 3 months: N Fall risk comments: 6. Patient on Blood Thinner: None 7. History of Hypertension: Y 8. Opioid Therapy greater than 6 weeks: N Opiate Contract Signed: 9. Risk Assessment Tool Provided: 0-low 10. Functional Assessment Tool: 11. Recreational Drug Use: Never Drug Type: Tobacco Use: Never Smoker Tobacco Type: Amount or Packs/day: How Many Years: Alcohol Use: No Frequency: Quant:
--- NOTE | 2020-08-20 08:22 | HPC ---
[facility] [address] [place] [address] PAIN MANAGEMENT CONSULTATION Name: ANJANA BINGHAM Room #: REG Filiberto PeoplesStacey#: [id number] Admission: 08/13/20 Attend Phys: Tomer Freeman DO Discharge: Date of : 45 Report #: [id number] THIS REPORT FOR: cc: ELIJAH MEDEROS MD Physician not on staff Tomer Freeman DO ~ DATE OF SERVICE: 08/13/2020 CHIEF COMPLAINT: Low back pain, bilateral lower extremity pain, left lateral arm pain. HISTORY OF PRESENT ILLNESS: As you know, the patient is a very pleasant 74-year-old male who has returned today in followup visit, wishing to begin the process of scheduling spinal cord stimulator trial implantation to address low back and lower extremity symptoms. The patient was referred to our clinic by his neurosurgeon to trial this device. He has trialed as many conservative options as he can. Unfortunately, none have provided significant benefit. He has returned to begin the process of scheduling the spinal cord stimulator trial implantation with plans to go to permanent if his symptoms resolve. The patient has undergone psychiatric evaluation and that has been completed. He had no psychopathology. We will begin the process of scheduling him as quickly as possible. He is placing pain score today is 6/10. This is involving the lateral aspect of the left upper extremity consistent with lateral epicondylitis. He returns to undergo a trigger point injection in that area, but also to begin the scheduling process. He has denied injury or trauma to either his back or his left elbow. ALLERGIES: No known drug allergies. CURRENT MEDICATIONS: Zolpidem 10 mg p.o. at bedtime, hydrocodone/acetaminophen 7.5/325 one tab every 6 hours p.r.n. pain, lisinopril/hydrochlorothiazide 20/12.5 mg once a day, carbidopa/levodopa 25/100 mg once a day, ibuprofen 600 mg t.i.d., gabapentin 300 mg p.o. at bedtime, tamsulosin 0.4 mg once a day. SOCIAL HISTORY: The patient denies tobacco, alcohol, IV or illicit drug use. He is retired, retired years ago, unaccompanied today. IMAGING: No new imaging available. PQRS: The patient has known arthritic changes of the lumbar spine, bilateral hips and knees mildly in the elbows and shoulders. No rheumatoid arthritis. He is placing current pain score at about 6/10. He is not a fall risk, has not had a fall in last 3 months. He is not on blood thinners, but is treated for hypertension. He is on chronic opioids, but does have a low opioid addiction potential. Pain impact , [id number] interference of daily activities secondary to pain. [address] [address] PAIN MANAGEMENT CONSULTATION Name: OTILIAANJANAGABRIEL GATICA Room #: REG CL Amalia#: [id number] Admission: 08/13/20 Attend Phys: Tomer Freeman DO Discharge: Date of : 45 Report #: [id number] PHYSICAL EXAMINATION: VITAL SIGNS: Blood pressure 131/75, pulse 73, respiratory rate 16 and unlabored. The patient is 98% on room air. Height 5 feet 11 inches tall, weight 170.8 pounds, BMI calculated 23.8. GENERAL: Well-developed, well-nourished, well-hydrated 74-year-old male appearing stated age, pain is rated today 6/10. HEENT: Normocephalic, atraumatic. Pupils equal, round. He is wearing a mask in compliance with COVID-19 regulations. EXTREMITIES: Show no clubbing, no cyanosis, no edema. The patient does have tremors of the left upper extremity, mildly on the left. The patient does have a deep brain stimulator to control these symptoms. MUSCULOSKELETAL: Seated straight leg raising negative. Supine straight leg raising positive. Isidro's test is negative. Modified Gaenslen's positive for axial low back pain. Ankle clonus negative. Babinski is negative. Gait mildly antalgic. There is palpatory tenderness over the lateral aspect of the left upper extremity, just around the area of the flexors of the distal arm consistent with a lateral epicondylitis. ASSESSMENT: 1. Left lateral epicondylitis. 2. Chronic lumbar radiculopathy. 3. Lumbosacral spondylosis with radiculopathy. 4. Failed lumbar spine surgery. 5. Parkinson's disease. 6. Chronic intractable pain. PLAN: 1. The patient returns today in followup visit, wishing to begin the process of scheduling a spinal cord stimulator trial implantation. The patient has successfully completed psychiatric evaluation earlier this year and there was no noted psychopathology. He is prepared to begin the process of undergoing the trial implantation per the request of his neurosurgeon and hopefully if successful, then move forward with permanent implant. We will begin the process of rescheduling the patient back to undergo the trial implantation. We will keep you apprised of the dates and times that this trial will be done and whatever efficacy he may receive from the trial itself. 2. The patient is continuing to experience lateral left epicondylitis and wishes to undergo trigger point injection in the area. The patient has done very well on the right side with 100% resolution of his symptoms, but unfortunately his left lateral epicondylitis has reoccurred. He had received about 100% improvement in symptoms until just recently where his symptoms began to recur just on the left side. He returns today to undergo trigger point injection. He has been advised risks and benefits, states understood and wished to proceed. 3. No medication changes made at today's visit. The patient will continue [address] [address] PAIN MANAGEMENT CONSULTATION Name: ANJANA BINGHAM SR Room #: REG FABIÁN Holland#: [id number] Admission: 08/13/20 Attend Phys: Tomer Freeman DO Discharge: Date of : 45 Report #: [id number] current medical therapy as prior prescribed. 4. We plan to see the patient back in followup visit for trial implantation of spinal cord stimulator as quickly as possible to begin the process and keep the patient apprised of our progress moving forward and then schedule him as quickly back to undergo the trial once the authorizations have been obtained. DESCRIPTION OF PROCEDURE: Left lateral epicondyle injections to address lateral epicondylitis. After obtaining written consent, the patient was placed in the seated position. The area overlying the left lateral elbow was prepped and draped in aseptic fashion using chlorhexidine. A 27-gauge 1-1/4 inch needle was then used to anesthetize skin and subcutaneous tissue with 1 mL of 1% lidocaine. A 25-gauge 2-inch needle was advanced into the area without complication. After negative aspiration for heme, 2 mL of a solution containing 1 mL 40 mg per mL, 40 mg total triamcinolone and 1 mL bupivacaine 0.5% was injected in a fanned out distribution over the site of discomfort. Needle was retracted [facility], flushed with 0.5 mL of lidocaine 1%, then removed. Sterile bandage placed over injection site. There were no new motor deficits present in the upper extremities following procedure. The patient tolerated procedure well, carefully escorted to recovery room in stable condition. VAS before procedure rated 6/10, VAS 10 minutes after procedure 0/10. After meeting our discharge criteria, the patient discharged home. <ELECTRONICALLY SIGNED> By: Tomer Freeman DO 08/20/20 0822 [id number] Tomre Freeman DO /nt
== END ==
LOC: PAIN 06:47
PROVIDERS: ATTEND Anesthesiology Pain Medicine
DX: M77.12 Lateral epicondylitis, left elbow (principal); G89.29 Other chronic pain; M47.27 Other spondylosis with radiculopathy, lumbosacral region; M96.1 Postlaminectomy syndrome, not elsewhere classified; I10 Essential (primary) hypertension; M19.90 Unspecified osteoarthritis, unspecified site; G20 Parkinson's disease; Z98.890 Other specified postprocedural states; Z79.899 Other long term (current) drug therapy; Z79.891 Long term (current) use of opiate analgesic

== ENCOUNTER → 2020-10-22 | Outpatient (CLI) | payer OTHER ==
[~2020-10-22] VITALS: Ht 180.3 cm; Wt 74.1 kg
[2020-10-22 07:21] VITALS: BP 144/99
--- NOTE | 2020-10-22 07:24 | NUR ---
Pain Clinic Assessment: 1. History of Osteoarthritis: BACK History of Rheumatoid Arthritis: NO 2. Height: 5 ft. 11 in. 180.3 cm. Weight: 163.4 lb. oz. 74.118 kg. Patient's BMI: 22.8 3. Vital Signs: BP: 144/99 Pulse: 93 Resp: 20 Temp: 02 Sat: 99 ECG Mon: 4. Pain Intensity: 1 5. Fall Risk: Dizziness: N Needs help standing or walking: N Fallen in the last 3 months: N Fall risk comments: 6. Patient on Blood Thinner: None 7. History of Hypertension: Y 8. Opioid Therapy greater than 6 weeks: N Opiate Contract Signed: 9. Risk Assessment Tool Provided: 0-low 10. Functional Assessment Tool: 11. Recreational Drug Use: Never Drug Type: Tobacco Use: Never Smoker Tobacco Type: Amount or Packs/day: How Many Years: Alcohol Use: No Frequency: Quant:
--- NOTE | 2020-10-22 14:28 | HPC ---
[facility] [place] [address] PAIN MANAGEMENT CONSULTATION Name: ANJANA BINGHAM Room #: REG [facility]#: [id number] Admission: 10/22/20 Attend Phys: Tomer Freeman DO Discharge: Date of : 45 Report #: [id number] THIS REPORT FOR: cc: ELIJAH MEDEROS MD Physician not on staff Tomer Freeman DO ~ DATE OF SERVICE: 10/22/2020 CHIEF COMPLAINT: Low back pain, bilateral pelvic, left lower extremity pain with paresthesias. HISTORY OF PRESENT ILLNESS: As you know, the patient is a very pleasant 74-year-old male who has returned today in followup visit for spinal cord stimulator trial implantation. The patient has been requested to undergo the trial by his neurosurgeon, Dr. Madhu Gomez in hopes of improving low back pain and left lower extremity pain with paresthesias. As you are aware, the patient has had 5 different lumbar spine surgeries, all of which have provided improvement in symptoms, but unfortunately symptoms continued to return. He has completed all prerequisites to undergo spinal cord stimulator trial implantation today. He returns reporting a pain score of about 1-2/10. ALLERGIES: No known drug allergies. CURRENT MEDICATIONS: Lisinopril/hydrochlorothiazide, amlodipine, hydrocodone, and zolpidem. SOCIAL HISTORY: The patient denies tobacco, alcohol, IV or illicit drug use. He is retired, retired years ago, unaccompanied today. IMAGING: No new imaging available. PQRS: The patient has arthritic changes of the lumbar spine, bilateral hips and knees and bilateral elbows. No rheumatoid arthritis. He is placing pain intensity 1-2/10. He is not a fall risk, has not had a fall in last 3 months. He is not on blood thinners, but is treated for hypertension. He is not on chronic opioids, has a low opioid addiction potential. Pain impact is 22/70, mild interference of daily activities secondary to pain. PHYSICAL EXAMINATION: VITAL SIGNS: Blood pressure 144/99, pulse 93, respiratory rate 20 and unlabored. The patient is 99% on room air. Height 5 feet 11 inches tall, weight 163.4 pounds, BMI calculated 22.8. GENERAL: Well-developed, well-nourished, well-hydrated 74-year-old male appearing stated age, pain is rated up to 1-2/10. HEENT: Normocephalic, atraumatic. Pupils equal, round and reactive. The patient is wearing a mask in compliance with COVID-[address] [address] PAIN MANAGEMENT CONSULTATION Name: ANJANA BINGHAM [facility] [id number] Admission: 10/22/20 Attend Phys: Tomer Freeman DO Discharge: Date of : 45 Report #: [id number] EXTREMITIES: Show no clubbing, no cyanosis. No appreciable edema. MUSCULOSKELETAL: The patient has noted tremors of the upper and lower extremities, greatest on the left. Seated straight leg raising negative. Supine straight leg raising positive on the left. Isidro's test is negative. Gait is antalgic favoring left lower extremity. ASSESSMENT: 1. Symptomatic lumbar radiculopathy. 2. Lumbosacral spondylosis with radiculopathy. 3. Failed lumbar spine surgery. 4. Parkinson's disease. 5. Chronic intractable pain. PLAN: 1. The patient returns today in followup visit to undergo for spinal cord stimulator trial implantation per the request of his neurosurgeon, Dr. Madhu Gomez. The patient has completed all prerequisites to undergo the procedure today. He has been advised of the risks and the benefits of this procedure. These risks include but are not necessarily limited to bleeding, bruising, infection, worsening pain, no relief of pain, also risk of temporary or permanent muscle weakness, temporary or permanent nerve damage, possible paralysis and . The patient states understood and wished to proceed. 2. No medication changes made at today's visit. The patient will continue current medical therapy as prior prescribed. 3. We plan to see the patient back in followup visit in 1 week to discuss efficacy of the spinal cord stimulator trial over the intervening week and to remove the trial implants. PROCEDURE NOTE DESCRIPTION OF PROCEDURE: Two-lead spinal cord stimulator implantation with fluoroscopy. After obtaining written consent, an IV Hep-Lock was placed in the patient's upper extremity. The patient was given IV prophylactic antibiotic, infused 30 minutes prior to procedure. The patient was then taken to the fluoroscopy suite, placed in prone position with 3 pillows under the abdomen to decrease the lumbar lordosis and to accentuate thoracic kyphosis. Cardiopulmonary monitoring was established and the patient's vital signs were monitored throughout the procedure. The patient's thoracolumbar spine was prepped and draped in aseptic fashion using chlorhexidine and sterile draping technique. AP imaging was obtained to identify and adis the midline position of the T10 through L2 spinous processes. Skin was anesthetized with 10 mL on the left and 10 mL on the right, of 1% lidocaine prior to the introduction of a 14-gauge 4-inch Tuohy needles. The skin entry site on the right side was at [address] [address] PAIN MANAGEMENT CONSULTATION Name: ANJANA BINGHAM SR Room #: REG [facility]#: [id number] Admission: 10/22/20 Attend Phys: Tomer Freeman DO Discharge: Date of : 45 Report #: [id number] the T12 vertebral body. The needle was advanced using a right paramedian approach with a 45-degree angle. Loss of resistance to air was utilized to verify placement within the epidural space. Epidural space entered at the T11-T12 interspace. Lateral fluoroscopic view was obtained to confirm the position of the tip of the Tuohy needle within the epidural space. Aspiration noted to be negative for heme or cerebrospinal fluid. The patient did not complain of any pain or paresthesias during needle placement. Spinal cord stimulating lead was then advanced through the Tuohy needle under direct visualization slightly to the right of midline. Tip of the stimulating lead was aligned with the inferior endplate of T7. Our attention was then directed to the left side. Skin entry site was at the approximate T11 vertebral body level. Needle was advanced using a left paramedian approach at a 45-degree angle. Loss of resistance air was utilized to verify placement within the epidural space. Epidural space was entered at the T11-T12 interspace on the left. Lateral fluoroscopic view was obtained to confirm position of the tip of the Tuohy needle within the epidural space. Aspiration noted to be negative for both heme or cerebrospinal fluid. The patient did not complain of pain or paresthesias during needle placement. Spinal cord stimulating lead was then advanced through the Tuohy needle under direct visualization towards the midline. Tip of the stimulating lead was aligned with the inferior endplate of T8. The stylets were then removed from the lead followed by the Tuohy needle. We confirmed the position of the leads throughout the explantation of the stylet and Tuohy needles bilaterally. The leads were then anchored to the patient's back with Mastisol, Steri-Strips, and OpSite bandaging. The patient tolerated the procedure well. He was carefully escorted to his recovery room in good condition. The device fuels sales representative spent 30 minutes of time with the patient today programming the device for the trial. The patient was advised to avoid getting the area wet. He was given information in regards to how the trial would be preceding and they will be contacting him on a daily basis and to make himself available for those contact each morning. The patient was also given an 800 number to contact the device fuels sales representative. The patient was also given phone numbers for the on-call pain physician. He is to contact our clinic if the patient is having any difficulty with increased back pain, excessive drainage at the site of insertion of the leads fever, chills, night sweats, headaches or any concerning issues in regards to the placement of the device and possible infection. After meeting our discharge criteria, the patient discharged home. <ELECTRONICALLY SIGNED> By: Tomer Freeman DO 10/22/20 1428 7 0951 Tomer Freeman DO /nt
== END | disposition home or self-care (01) ==
LOC: PAIN 06:38
PROVIDERS: ATTEND Anesthesiology Pain Medicine
DX: M54.5 Low back pain (principal); M47.27 Other spondylosis with radiculopathy, lumbosacral region; M96.1 Postlaminectomy syndrome, not elsewhere classified; G89.29 Other chronic pain; G20 Parkinson's disease; I10 Essential (primary) hypertension; M19.90 Unspecified osteoarthritis, unspecified site; Z98.890 Other specified postprocedural states; Z79.899 Other long term (current) drug therapy

== ENCOUNTER → 2020-10-29 | Outpatient (CLI) | payer OTHER ==
[~2020-10-29] VITALS: Ht 180.3 cm; Wt 76.3 kg
[2020-10-29 09:59] VITALS: BP 104/72
--- NOTE | 2020-10-29 10:09 | NUR ---
Pain Clinic Assessment: 1. History of Osteoarthritis: BACK History of Rheumatoid Arthritis: NO 2. Height: 5 ft. 11 in. 180.3 cm. Weight: 168.2 lb. oz. 76.295 kg. Patient's BMI: 23.5 3. Vital Signs: BP: 104/72 Pulse: 84 Resp: 14 Temp: 02 Sat: 100 ECG Mon: 4. Pain Intensity: 0 TO 8 5. Fall Risk: Dizziness: N Needs help standing or walking: N Fallen in the last 3 months: N Fall risk comments: 6. Patient on Blood Thinner: None 7. History of Hypertension: Y 8. Opioid Therapy greater than 6 weeks: N Opiate Contract Signed: 9. Risk Assessment Tool Provided: 0-low 10. Functional Assessment Tool: 11. Recreational Drug Use: Never Drug Type: Tobacco Use: Never Smoker Tobacco Type: Amount or Packs/day: How Many Years: Alcohol Use: No Frequency: Quant:
--- NOTE | 2020-10-30 07:28 | HPC ---
[facility] [address] PAIN MANAGEMENT CONSULTATION Name: ANJANA BINGHAM Room #: REG [facility].#: [id number] Admission: 10/29/20 Attend Phys: Tomer Freeman DO Discharge: Date of : 45 Report #: [id number] THIS REPORT FOR: cc: ELIJAH MEDEROS MD Physician not on staff Tomer Freeman DO ~ DATE OF SERVICE: 10/29/2020 REFERRING PHYSICIAN: Madhu Gomez MD CHIEF COMPLAINT: Low back pain, bilateral pelvic and left lower extremity pain. HISTORY OF PRESENT ILLNESS: As you know, the patient is a very pleasant 74-year-old male returning in followup visit for explantation of spinal cord stimulating device. The patient reports greater than 50% improvement in overall pain with the device. He states his walks have gone from 2 miles up to 4 miles, so he is back to his normal routine with the use of the device. He returns stating a pain no greater than 0/10, but can get as high as 8/10. He indicates he is pleased with response to the device and wishes to move forward with permanent implant. He understands that he can gain exactly what he received in the trial with a permanent implant, but we had advised him at last visit not to assume greater efficacy. The patient returns today in followup visit for explantation of device and to move forward with permanent implant. ALLERGIES: No known drug allergies. CURRENT MEDICATIONS: Lisinopril/hydrochlorothiazide, amlodipine, hydrocodone, and zolpidem. SOCIAL HISTORY: The patient denies tobacco, alcohol, IV or illicit drug use. He is retired, retired years ago; unaccompanied today. IMAGING: No new imaging available. PQRS: The patient has known arthritic changes of the lumbar spine, bilateral hips, knees and elbows. No rheumatoid arthritis. The patient is placing pain intensity anywhere from 0-8/10. He is not a fall risk, has not had a fall in last 3 months. He is not on blood thinners, but is treated for hypertension. He is not on any opioids, has a low opiate addiction potential based on assessment tool. Pain impact is 22/70, mild to moderate interference of daily activities secondary to pain. PHYSICAL EXAMINATION: VITAL SIGNS: Blood pressure 104/72, pulse 84, respiratory rate 14 and unlabored. The patient is 100% on room air. Height 5 feet 11 inches tall, weight 168.2 pounds, BMI [place] 23[place] [address] PAIN MANAGEMENT CONSULTATION Name: ANJANA BINGHAM Room #: REG [facility]#: [id number] Admission: 10/29/20 Attend Phys: Tomer Freeman DO Discharge: Date of : 45 Report #: [id number] GENERAL: Well-developed, well-nourished, well-hydrated 74-year-old male appearing stated age, pain is rated anywhere from 0-8/10. HEENT: Normocephalic, atraumatic. Pupils are round, and responsive. The patient is wearing a mask in compliance with COVID-19 regulations. EXTREMITIES: Show no clubbing, no cyanosis and no appreciable edema. MUSCULOSKELETAL: The patient has once again tremors noted both in the upper and lower extremities, greatest on the left. Seated straight leg raising negative. Supine straight leg raising remains positive left. Isidro's test is negative. There is bandaging over the lumbar spine that is clean, dry and intact. ASSESSMENT: 1. Symptomatic lumbar radiculopathy. 2. Lumbosacral spondylosis with radiculopathy. 3. Failed lumbar spine surgery. 4. Parkinson's disease. 5. Chronic intractable pain. PLAN: 1. The patient returns today in followup visit for explantation of spinal cord stimulating device. The patient feels that the device gave approximately 50% improvement in overall pain. He is very pleased with response to treatment and wishes to move forward with permanent implant. We have advised the patient to contact the neurosurgeon who referred him to our clinic to begin the process of scheduling spinal cord stimulator implantation on a permanent basis. The patient will make contact with his neurosurgeon team over the next couple of days to establish a return appointment to begin the process of scheduling and preapprovals. We are pleased to see the patient has done well. 2. No medication changes made at today's visit. The patient will continue current medical therapy as prior prescribed. 3. We will see the patient back in followup visit on an as needed basis. We wish him good luck with the permanent implant. We will keep us apprised of the implant date. PROCEDURE NOTE PROCEDURE: Explantation of spinal cord stimulating leads. DESCRIPTION OF PROCEDURE: The patient was placed in a seated position. We removed all Steri-Strips and OpSite bandaging. There were 2 spinal cord stimulator leads in place. There is no erythema or drainage at the insertion sites. Both leads were removed without difficulty, pain or paresthesias. The patient reported no change in overall pain upon explantation of the device. The leads had their [address] in [address]. Sterile bandage was placed over each of the injection sites. The patient was advised to watch for any excessive [address] [address] PAIN MANAGEMENT CONSULTATION Name: ANJANA BINGHAM SR Room #: REG [facility].#: [id number] Admission: 10/29/20 Attend Phys: Tomer Freeman DO Discharge: Date of : 45 Report #: [id number] drainage or increased back pain. After meeting our discharge criteria, the patient discharged home. <ELECTRONICALLY SIGNED> By: Tomer Freeman DO 10/30/20 0728 1226 1311 Tomer Freeman DO /nt
== END ==
LOC: PAIN 06:56
PROVIDERS: ATTEND Anesthesiology Pain Medicine
DX: M47.27 Other spondylosis with radiculopathy, lumbosacral region (principal); G20 Parkinson's disease; G89.29 Other chronic pain; M79.604 Pain in right leg; M79.605 Pain in left leg; Z88.8 Allergy status to other drugs, medicaments and biological substances; Z79.899 Other long term (current) drug therapy

== ENCOUNTER → 2020-12-10 | Outpatient (CLI) | payer OTHER ==
[~2020-12-10] VITALS: Ht 180.3 cm; Wt 75.7 kg
[2020-12-10 14:14] VITALS: BP 128/65
--- NOTE | 2020-12-10 14:23 | NUR ---
Pain Clinic Assessment: 1. History of Osteoarthritis: BACK History of Rheumatoid Arthritis: NO 2. Height: 5 ft. 11 in. 180.3 cm. Weight: 166.8 lb. oz. 75.660 kg. Patient's BMI: 23.3 3. Vital Signs: BP: 128/65 Pulse: 81 Resp: 16 Temp: 02 Sat: 97 ECG Mon: 4. Pain Intensity: 8 5. Fall Risk: Dizziness: N Needs help standing or walking: N Fallen in the last 3 months: N Fall risk comments: 6. Patient on Blood Thinner: None 7. History of Hypertension: Y 8. Opioid Therapy greater than 6 weeks: N Opiate Contract Signed: 9. Risk Assessment Tool Provided: 0-low 10. Functional Assessment Tool: 11. Recreational Drug Use: Never Drug Type: Tobacco Use: Never Smoker Tobacco Type: Amount or Packs/day: How Many Years: Alcohol Use: No Frequency: Quant:
--- NOTE | 2020-12-17 11:26 | HPC ---
[facility] [place] [address] PAIN MANAGEMENT CONSULTATION Name: ANJANA BINGHAM Room #: REG [facility].#: [id number] Admission: 12/10/20 Attend Phys: Tomer Freeman DO Discharge: Date of : 45 Report #: [id number] THIS REPORT FOR: cc: ELIJAH SHEIKH MD Physician not on staff Tomer Freeman DO ~ DOC #: [id number] cc: Elijah Sheikh MD, KAREN Wilson DO DATE OF SERVICE: 12/10/2020 REFERRING NURSE PRACTITIONER: Tita Magdaleno NP CHIEF COMPLAINT: Right buttock and posterolateral thigh pain. HISTORY OF PRESENT ILLNESS: As you know, the patient is extremely pleasant 75-year-old male who returns today in followup visit per the request of his neurosurgery team to undergo right sacroiliac joint injection under fluoroscopic guidance. The patient was recently seen at [facility] and referred back to our clinic to trial right SI joint pain. The patient was being scheduled to undergo a spinal cord stimulator implantation to address lumbar radiculopathy when he was complaining of continued right buttock and posterolateral thigh pain. The patient was subsequently referred back to our clinic for concerns of SI joint dysfunction. The patient has undergone SI joint injections in the past with good benefit. He continues to experience recurrent axial back pain and buttock pain consistent with multiple generators. He reports today pain level of about 8/10. He is able to localize pain directly over the sacroiliac joint and the area overlying the buttock area. ALLERGIES: No known drug allergies. CURRENT MEDICATIONS: Lisinopril, hydrochlorothiazide, amlodipine, hydrocodone, and zolpidem. SOCIAL HISTORY: The patient denies tobacco, alcohol or IV or illicit drug use. He is retired, retired years ago. Accompanied by his daughter present in room today. IMAGING: No new imaging available. PQRS: The patient has known arthritic change in lumbar spine, bilateral hips, bilateral sacroiliac joints, knees and elbows. No rheumatoid arthritis. He is placing pain intensity today at 8/10. He is not a fall risk, has not had a fall in the last 3 months. He is not on blood thinners, but history of hypertension. He is not on any chronic opioids, has a low opioid addiction potential. Pain impact is 22/70. Mild to moderate interference of daily activities secondary to [facility] [address] [place] [address] PAIN MANAGEMENT CONSULTATION Name: ANJANA BINGHAM Room #: REG [facility]#: [id number] Admission: 12/10/20 Attend Phys: Tomer Freeman DO Discharge: Date of : 45 Report #: [id number] pain. PHYSICAL EXAMINATION: VITAL SIGNS: Blood pressure 128/65, pulse 81, respiratory rate 16 and unlabored. The patient 97% on room air, height 5 feet 11 inches tall, weight 166.8 pounds, BMI calculated 23.3. GENERAL: Well-developed, well-nourished, well-hydrated 75-year-old male appearing stated age. Pain is rated today 8/10. HEENT: Normocephalic, atraumatic. Pupils are round and responsive. Extraocular muscles are intact. He is wearing a mask in compliance with COVID-19 regulations. EXTREMITIES: Show no clubbing, no cyanosis, no edema. MUSCULOSKELETAL: The patient has palpatory tenderness over the sacroiliac joint. He has a positive thigh thrust maneuver on the right, negative left. Armin's is positive on the right, negative left. Modified Gaenslen's positive for SI joint dysfunction on the right, negative left. ASSESSMENT: 1. Right sacroiliac joint pain. 2. Chronic axial back pain due to lumbar radiculopathy. 3. Failed lumbar spine surgery. 4. Parkinson's disease. 5. Chronic intractable pain. PLAN: 1. The patient returns today in followup visit per the request of his neurosurgery team to trial an SI joint injection on the right. He has done very well with previous SI joint injections. I am hopeful to see similar improvement today. The patient denies any specific injury or trauma that may have led to symptom development. He states that his pain just continued to progress to the point where he sought evaluation through Neurosurgery. They have requested an SI joint injection to be performed today. He was made today's appointment to undergo that procedure. He has been advised the risks and benefits of the procedure, states he understood and wished to proceed. 2. We made no changes in medication management this visit. We recommend the patient continue current medical therapy. 3. We plan to see the patient back for a followup visit on an as-needed basis for possible next in a series of right SI joint injections. We are hopeful the patient will see good and prolonged benefit with today's procedure, so that he can move forward with a spinal cord stimulator permanent implantation plan for the end of December. PROCEDURE NOTE DESCRIPTION OF PROCEDURE: Right sacroiliac joint injection under fluoroscopic guidance. [address] [address] PAIN MANAGEMENT CONSULTATION Name: ANJANA BINGHAM Room #: REG [facility]#: [id number] Admission: 12/10/20 Attend Phys: Tomer Freeman DO Discharge: Date of : 45 Report #: [id number] After obtaining written consent, the patient was taken back to fluoroscopy suite, placed in a prone position with pillow under pelvis to decrease lumbar lordosis. Skin of the gluteal sacral area overlying the right sacroiliac joint was prepped and draped in aseptic fashion. A medial to lateral oblique projection allowed separation of the anterior and posterior joint space to be visualized. Skin and subcutaneous tissue overlying the target site of injection was then anesthetized with 3 mL of 1% lidocaine. A 22-gauge 3-1/2 inch spinal needle with bent tip was directed to the inferior aspect of the sacroiliac joint using a posterior approach. A "giving away" at the needle hub was noted once the dorsal sacroiliac and interosseous ligaments were engaged. After negative aspiration for heme, 0.2 mL of Omnipaque injected outlining the inferior recess of the joint. Pain provocation was negative. After negative aspiration for heme, 4 mL of a solution containing 1 mL 40 mg per mL, 40 mg total triamcinolone and 3 mL of bupivacaine 0.5% injected slowly. Needle retracted mcc flushed with 1 mL of 1% lidocaine and then removed. Sterile bandage was placed over injection site. There were no new motor deficits present in the lower extremities, following the procedure. The patient tolerated the procedure well, carefully escorted to recovery room in stable condition. No apparent complications. After meeting discharge criteria, the patient os discharged home. Tomer Freeman DO JEJ/TROY/TAJ <ELECTRONICALLY SIGNED> By: Tomer Freeman DO 12/17/20 1126 [id number] Tomer Freeman DO /nt
== END | disposition home or self-care (01) ==
LOC: PAIN 12:38
PROVIDERS: ATTEND Anesthesiology Pain Medicine
DX: M53.3 Sacrococcygeal disorders, not elsewhere classified (principal); M54.9 Dorsalgia, unspecified; M54.16 Radiculopathy, lumbar region; M96.1 Postlaminectomy syndrome, not elsewhere classified; G89.29 Other chronic pain; I10 Essential (primary) hypertension; M19.90 Unspecified osteoarthritis, unspecified site; G20 Parkinson's disease; Z98.890 Other specified postprocedural states; Z79.899 Other long term (current) drug therapy